=== PATIENT | female | born 1980 ===

== ENCOUNTER 2017-08-24 19:33 | Emergency (ER) | payer SELFPAY ==
[~2017-08-24 19:33] MED LIST: ISOVUE-370 76%-LOCM 1 ML ONE; Iopamidol 370 76% 50 ML VIAL FS ONE
[2017-08-24 19:56] LABS: #Basophils 0.1 thou/uL (0.0-0.2); #Eosinphils 0.4 thou/uL (0.0-0.7); #Lymphocytes 3.1 thou/uL (1.20-3.40); #Monocytes 0.9 thou/uL (0.11-0.59); #Neutrophils 2.7 thou/uL (1.40-6.50); %Basophils 0.8 % (0.0-1.0); %Eosinophils 5.9 % (0.0-10.0); %Lymphocytes 43.4 % (21.0-51.0); %Monocytes 11.9 % (0.0-10.0); Hematocrit 41.6 % (36.0-47.0); Mean Platelet Volume 9.6 fL (7.4-10.4); Red Blood Cell (RBC) Count 4.74 mill/uL (4.20-5.40); White Blood Cell (WBC) Count 7.2 thou/uL (4.8-10.8)
[2017-08-24 20:03] LABS: Bilirubin Negative (Negative); Blood, Urine Trace (Negative); Glucose, Urine (Dipstick) Negative (Negative); Ketone, Urine Negative (Negative); Nitrite Negative (Negative); Protein, Urine (Dipstick) Negative (Neg-Trace); Urobilinogen 0.2 mg/dL (0.2-1.0)
[2017-08-24 20:05] LABS: Bacteria/HPF None Seen HPF (None Seen); Hyaline Casts/LPF 0-3 HYALINE CAST LPF (0-3 Hyaline); Squamous Epithelial 0-3 HPF (0-3); WBC/HPF 0-3 HPF (0-3)
[2017-08-24] MEDS ORDERED: Morphine 2 MG/ML SYRINGE ONE ×2 (20:20→22:52)
[2017-08-24 20:21] LABS: ALT (SGPT) 37 U/L (8-55); AST (SGOT) 62 U/L (5-34); Alkaline Phosphatase 89 U/L (40-150); Anion Gap 11 mmol/L (10-20); BUN (Urea Nitrogen) 9 mg/dL (7.0-18.7); Bilirubin, Total 0.2 mg/dL (0.2-1.2); Calc. Creatinine Clearance 0 mL/min (70-130); Calcium 9.3 mg/dL (7.8-10.44); Carbon Dioxide 23 mmol/L (22-29); Chloride 108 mmol/L (98-107); Estimated GFR-MDRD 89; Globulin 3.7 g/dL (2.4-3.5); Lipase 22 U/L (8-78); Protein, Total 7.7 g/dL (6.0-8.3)
[2017-08-24] MEDS ORDERED: Ondansetron HCl/PF 4 MG/2 ML Vial ONE (21:11)
[2017-08-24] MEDS ORDERED: Lidocaine Viscous Sol 2% 15 ml UD Cup ONE ×2 (21:11→21:19)
[2017-08-24] MEDS ORDERED: Mag-Al 1200 mg/1200 mg/30 ML UDCUP ONE ×2 (21:11→21:19)
--- NOTE | 2017-08-24 22:07 | CT ---
CT OF ABDOMEN AND PELVIS PERFORMED WITH CONTRAST ENHANCEMENT: 08/24/17 HISTORY: Severe upper abdominal pain. Pain localized more to the left side. Patient has a history of pancreat itis. The lung bases are clear. The liver and spleen are normal in size. Some minimal periportal edema changes seen. The pancreas sh ows a slightly prominent pancreatic duct. No peripancreatic inflammatory change is seen. The gallbla dder has been removed. Right and left adrenal gland and right and left kidneys are normal in size. There is no significant periaortic or mesenteric adenopathy. CT OF PELVIS PERFORMED WITH CONTRAST ENHANCEMENT: 08/24/17 There is an enlarged fibromatous appearing uterus. There is what appears to be a collapsed follicle in the region of the right adnexa and there is free fluid within the cul-de-sac region. The appendix is normal. IMPRESSION: Fibromatous appearing uterus with a collapsed follicle involving the right adnexa with free fluid in the cul-de-sac region. POS: ESTELA
[2017-08-24] MEDS ORDERED: Metoclopramide HCl 10 MG/2 ML VIAL ONE (22:50)
[2017-08-24] MEDS ORDERED: diphenhydrAMINE 50 MG/ML VIAL ONE (23:25)
[2017-08-24] MEDS ORDERED: Ketorolac Tromethamine 30 MG/ML VIAL ONE (23:34)
== END 2017-08-24 23:52 | disposition home or self-care (01) ==
LOC: ERS 19:33
DX: R10.13 Epigastric pain (principal); R10.12 Left upper quadrant pain; K58.9 Irritable bowel syndrome, unspecified; F17.210 Nicotine dependence, cigarettes, uncomplicated; Z79.899 Other long term (current) drug therapy
CPT/HCPCS: 74177; 80053; 81003; 81015; 83690; 85025; 96361; 96372; 96374; 96375; 96376; J1200; J1885; J2270; J2405; J2765

== ENCOUNTER 2023-01-31 13:34 | Emergency (ER) | payer BC, SELFPAY ==
[2023-01-31] MEDS ORDERED: Ketorolac Tromethamine 30 MG/ML VIAL ONE (15:29)
== END 2023-01-31 15:50 | disposition home or self-care (01) ==
LOC: ERS 13:34
DX: R56.9 Unspecified convulsions (principal); M54.6 Pain in thoracic spine; F17.210 Nicotine dependence, cigarettes, uncomplicated
CPT/HCPCS: 96372; 99284; J1885